=== PATIENT | male | born 1960 | race Hispanic/Latino ===

== ENCOUNTER 2019-02-20 10:47 | Observation (INO) | payer OTHER ==
[~2019-02-20] VITALS: Ht 154.9 cm; Wt 75.9 kg
[2019-02-20] MEDS ORDERED: HYDRALAZINE HCL 20 MG/ML VIAL IV STA (10:54)
[2019-02-20] MEDS ORDERED: MULTIVITAMINS- 12 INJECTION 10 ML, FOLIC ACID MDV 5 MG, THIAMINE HCL INJ 100 MG in SODI... IV ONE ×2 (11:00→13:00)
[2019-02-20] MEDS ORDERED: DIAZEPAM INJ 5 MG/ML 2 ML IV ONE (11:00)
[2019-02-20 11:24] LABS: BASOPHILS # (AUTO) 0.1 (0.0-0.1); BASOPHILS % 0.7 % (0.0-1.0); EOSINOPHILS % 0.6 % (0.0-6.0); HEMATOCRIT 48.8 % (38.2-49.6); HEMOGLOBIN 16.9 g/dL (14.0-18.0); LYMPHOCYTES # (AUTO) 1.4 (1.0-3.2); LYMPHOCYTES % 19.3 % (18.0-39.1); MEAN CORPUSCULAR HEMOGLOBIN 29.8 pg (28-32); MEAN CORPUSCULAR HGB CONC 34.6 g/dL (31-35); MEAN CORPUSCULAR VOLUME 86.1 fL (81-99); MONOCYTES # (AUTO) 0.6 (0.2-0.8); MONOCYTES % 8.7 % (4.4-11.3); NEUTROPHILS % 70.1 % (38.7-80.0); PLATELET COUNT 151 x10e3/uL (140-360); RED BLOOD COUNT 5.67 x10e6/uL (4.3-5.7); RED CELL DISTRIBUTION WIDTH 13.5 % (11.7-14.4)
[2019-02-20 11:34] LABS: INR 0.9; PROTHROMBIN TIME 12.6 seconds (11.9-14.5)
[2019-02-20 11:36] LABS: PARTIAL THROMBOPLASTIN TIME 24.7 seconds (23.8-35.5)
[2019-02-20 11:37] LABS: ALANINE AMINOTRANSFERASE 54 IU/L (0-55); ALBUMIN 4.5 g/dL (3.5-5.0); ALBUMIN/GLOBULIN RATIO 1.3 (0.8-2.0); ALKALINE PHOSPHATASE 108 IU/L (40-150); ANION GAP 20.3 mmol/L (8-16); BLOOD UREA NITROGEN 6 mg/dL (7-26); BUN/CREATININE RATIO 6 (6-25); CARBON DIOXIDE 25 mmol/L (22-29); CHLORIDE 95 mmol/L (98-107); CREATINE KINASE 1104 IU/L (30-200); CREATININE, SERUM 1.04 mg/dL (0.72-1.25); EST GLOMERULAR FILTRATION RATE > 60 ML/MIN (60-); GLUCOSE 129 mg/dL (74-118); POTASSIUM 3.3 mmol/L (3.5-5.1); SODIUM 137 mmol/L (136-145)
[2019-02-20 11:48] LABS: BILIRUBIN,URINE NEGATIVE (NEGATIVE); CLARITY,URINE CLEAR (CLEAR); COLOR,URINE YELLOW (YELLOW); LEUKOCYTE ESTERASE ,URINE NEGATIVE (NEGATIVE); NITRITE,URINE NEGATIVE (NEGATIVE); PROTEIN,URINE DIPSTICK 2+ (NEGATIVE); URINE UROBILINOGEN 1 mg/dL (0.2 - 1)
[2019-02-20 12:08] LABS: KETONES,URINE 2+ (NEGATIVE)
[2019-02-20 12:09] LABS: BACTERIA,URINE MODERATE /HPF; EPITHELIAL CELLS,URINE MODERATE /LPF
--- NOTE | 2019-02-20 13:06 | Diagnostic Imaging Report ---
EXAMINATION: CHEST SINGLE (NOT PORTABLE) INDICATION: Hypertension COMPARISON: None FINDINGS: LINES/TUBES:EKG leads overlie the chest. LUNGS:The lungs are well-inflated. No focal consolidation or pulmonary edema. PLEURA:No pleural effusion or pneumothorax. MEDIASTINUM:The cardiomediastinal silhouette appears normal in size and shape. BONES/SOFT TISSUES:No acute osseous injury. ABDOMEN:No free air under the diaphragm. IMPRESSION: No focal pneumonia or pulmonary edema. Signed by: Ady Tao MD on 02/20/2019 1:02 PM
[2019-02-20] MEDS ORDERED: SODIUM CHLORIDE 0.9% 1000ML 1,000 ML IV SCH (13:31)
--- OUTSIDE RECORDS SUMMARY | 2019-02-20 13:42 | XMS REPORT ---
[facility] [place] Address Unknown Phone Unavailable Care Team Providers Care It Compliance Manager Name Role Phone Tony GUERRA Unavailable Unavailable Problems This patient has no known problems. Allergies, Adverse Reactions, Alerts This patient has no known allergies or adverse reactions. Medications This patient has no known medications. Results Test Description Test Time Test Comments Text Results Atomic Results Result Comments CHEST SINGLE (NOT PORTABLE) 2019-02-20 13:01:00 [facility] [address] [place] [address] Patient Name: ELISHA MAR MR #: [id number] : 1960 Age/Sex: 58/M Req #: [id number] Adm Physician: Ordered by: BRIAN BETHEA NP Report #: [id number] Location: ER Room/Bed: Procedure: [id number] DX/CHEST SINGLE (NOT PORTABLE) Exam Date: 02/20/19 Exam Time: 1205 REPORT STATUS: Signed EXAMINATION: CHEST SINGLE (NOT PORTABLE) INDICATION: Hypertension COMPARISON: None FINDINGS: LINES/TUBES:EKG leads overlie the chest. LUNGS:The lungs are well-inflated. No focal consolidation or pulmonary edema. PLEURA:No pleural effusion or pneumothorax. MEDIASTINUM:The cardiomediastinal silhouette appears normal in size and shape. BONES/SOFT TISSUES:No acute osseous injury. ABDOMEN:No free air under the diaphragm. IMPRESSION: No focal pneumonia or pulmonary edema. Signed by: Vincenzo Tao MD on 02/20/2019 1:02 PM Dictated By: VINCENZO TAO MD 1302 Transcribed By: KALLI on 02/20/19 1302 COPY TO: BRIAN BETHEA NP
[2019-02-20] MEDS ORDERED: ASPIRIN 81 MG CHEW TAB PO ONE (13:45)
[2019-02-20] MEDS ORDERED: ONDANSETRON HCL INJ 2MG/ML 2ML 2 MG/ML VIAL IV PRN (13:45)
[2019-02-20 14:02] LABS: AMPHETAMINES SCREEN,URINE NEGATIVE (NEGATIVE); BENZODIAZEPINES SCREEN,URINE NEGATIVE (NEGATIVE); PHENCYCLIDINE SCREEN,URINE NEGATIVE (NEGATIVE)
--- NOTE | 2019-02-20 15:30 | NUR ---
Received patient from ER via stretcher. AAOX4 to time, person, place, situation Respirations even and unlabored. Tele #[phone] ST [id number].Oriented to room. Instructed to use call light for assistance. Voiced understanding.
[2019-02-20 16:00] VITALS: BP 173/93
[2019-02-20] MEDS ORDERED: LOSARTAN-HCTZ1 EAC2 PO (16:02)
[2019-02-20 16:14] VITALS: BP 173/93
[2019-02-20] MEDS ORDERED: LOSARTAN POTASSIUM 100 MG TAB PO ONE (16:30)
[2019-02-20] MEDS ORDERED: CLONIDINE HCL 0.1 MG TAB PO ONE (16:30)
[2019-02-20] MEDS: ACETAMINOPHEN 325 MG TAB PO PRN (16:52)
[2019-02-20] MEDS: CHLORDIAZEPOXIDE HCL 25 MG CAP PO SCH (16:52)
--- NOTE | 2019-02-20 16:53 | NUR ---
aware of BP and of chest pain. See orders
[2019-02-20 17:01] VITALS: BP 173/93
[2019-02-20] MEDS ORDERED: POTASSIUM CHLORIDE 20 MEQ TAB CR PO ONE (18:22)
[2019-02-20] MEDS ORDERED: METOPROLOL TARTRATE 25 MG TAB PO ONE (18:31)
--- NOTE | 2019-02-20 19:10 | NUR ---
Report given to oncoming nurse of patient's status. Resting in bed, side rails upx2, call light within reach. and family members at bedside. AAOX4 to time, person, place, situation. Respirations even and unlabored. Denies pain.
[2019-02-20 19:26] LABS: MAGNESIUM 2.3 MG/DL (1.3-2.1)
[2019-02-20 19:48] LABS: FREE THYROXINE INDEX 2.9764 (1.4-3.8); THYROID STIMULATING HORMONE 3.666 uIU/mL (0.350-4.940)
[2019-02-20 20:00] VITALS: BP 138/81
--- NOTE | 2019-02-20 20:00 | NUR ---
INITIAL ASSESSMENT COMPLETE, FAMILY AT BEDSIDE, VS STABLE, NO C/O PAIN, TELE ON PT, IV INFUSING, NO DISTRESS NOTED, CALL LIGHT IN REACH
[2019-02-21] VITALS: BP 135/82
[2019-02-21 04:00] VITALS: BP 152/90
[2019-02-21] MEDS: CHLORDIAZEPOXIDE HCL 25 MG CAP PO SCH ×3 (06:00→11:58)
[2019-02-21 06:18] LABS: BASOPHILS % 0.5 % (0.0-1.0); EOSINOPHILS # (AUTO) 0.1 (0.0-0.4); EOSINOPHILS % 1.8 % (0.0-6.0); HEMATOCRIT 44.7 % (38.2-49.6); LYMPHOCYTES # (AUTO) 1.2 (1.0-3.2); LYMPHOCYTES % 19.8 % (18.0-39.1); MEAN CORPUSCULAR HEMOGLOBIN 30.2 pg (28-32); MEAN CORPUSCULAR HGB CONC 33.6 g/dL (31-35); MEAN CORPUSCULAR VOLUME 90.1 fL (81-99); MONOCYTES # (AUTO) 0.5 (0.2-0.8); MONOCYTES % 7.9 % (4.4-11.3); NEUTROPHILS # (AUTO) 4.3 (2.1-6.9); NEUTROPHILS % 69.7 % (38.7-80.0); PLATELET COUNT 114 x10e3/uL (140-360); RED BLOOD COUNT 4.96 x10e6/uL (4.3-5.7); RED CELL DISTRIBUTION WIDTH 13.8 % (11.7-14.4)
[2019-02-21 06:47] LABS: CREATINE KINASE MB 2.1 ng/mL (0-5.0)
[2019-02-21 07:09] LABS: ALANINE AMINOTRANSFERASE 42 IU/L (0-55); ALBUMIN 3.4 g/dL (3.5-5.0); ALBUMIN/GLOBULIN RATIO 1.1 (0.8-2.0); ALKALINE PHOSPHATASE 82 IU/L (40-150); ANION GAP 13.5 mmol/L (8-16); BLOOD UREA NITROGEN 9 mg/dL (7-26); BUN/CREATININE RATIO 10 (6-25); CALCIUM 8.6 mg/dL (8.4-10.2); CARBON DIOXIDE 26 mmol/L (22-29); CHLORIDE 102 mmol/L (98-107); CREATININE, SERUM 0.93 mg/dL (0.72-1.25); EST GLOMERULAR FILTRATION RATE > 60 ML/MIN (60-); GLUCOSE 98 mg/dL (74-118); POTASSIUM 4.5 mmol/L (3.5-5.1); SODIUM 137 mmol/L (136-145)
[2019-02-21 07:10] VITALS: BP 156/92
[2019-02-21 07:14] LABS: PLATELET ESTIMATE SLIGHTLY DECREASED; PLATELET MORPHOLOGY COMMENT RARE EDTA CLUMPING; RBC MORPHOLOGY COMMENT NORMAL
[2019-02-21 07:26] VITALS: BP 156/92
--- NOTE | 2019-02-21 07:26 | Diagnostic Imaging Report ---
EXAMINATION: CHEST SINGLE (PORTABLE) INDICATION: ^CP ^[id number] ^[id number] COMPARISON: 02/20/2019 FINDINGS: AP view TUBES and LINES: None. LUNGS: Lungs are well inflated. There is no evidence of pneumonia or pulmonary edema. PLEURA: No pleural effusion or pneumothorax. HEART AND MEDIASTINUM: The cardiomediastinal silhouette is unremarkable. Prominent bilateral hilar regions. BONES AND SOFT TISSUES: No acute osseous lesion. Soft tissues are unremarkable. UPPER ABDOMEN: No free air under the diaphragm. IMPRESSION: Prominent bilateral hilar regions, could represent hilar adenopathy. Otherwise, unremarkable. Signed by: Dr. Deniz Frank MD on 02/21/2019 7:23 AM
[2019-02-21] MEDS: ACETAMINOPHEN 325 MG TAB PO PRN (08:16)
[2019-02-21] MEDS ORDERED: LOSARTAN POTASSIUM 100 MG TAB PO SCH ×2 (09:00→09:30)
[2019-02-21] MEDS ORDERED: LOSARTAN POTAS100 MG PO (09:30)
[2019-02-21] MEDS ORDERED: CHLORDIAZEPOXID25 MG PO (09:30)
[2019-02-21] MEDS ORDERED: LOSARTAN POTASSIUM 100 MG TAB PO ONE (10:00)
--- NOTE | 2019-02-21 10:19 | NUR ---
at bedside. Patient states "I am depressed. I had not told you, but yesterday prior to being admitted I had suicidal thoughts only. This has happened in the past. Today I am feeling more positive." Paged to notify of patient's status.
--- NOTE | 2019-02-21 11:20 | NUR ---
at bedside and aware of patient's depression. aware patient stated "I had suicidal thoughts yesterday prior to admission, but today I feel more positive."
[2019-02-21 13:07] VITALS: BP 150/81
--- NOTE | 2019-02-21 13:55 | NUR ---
Spoke with Quinn, with Dr.Qureshi Browne answering service, and scheduled appointment for 02/23/19 at 08:50. Patient and aware of appointment.
--- NOTE | 2019-02-21 14:06 | NUR ---
Right AC IV discontinued. No signs of infiltration noted. 2x2 gauze and tape place. Refused wheelchair. Accompanied by PCT and to personal car. AAOX4 to time, person, place, situation. Respirations even and unlabored. Denies pain. Discharge instructions, rx, and all personal belongings taken with patient. Reminded patient of appointment with Dr. Ronen Browne Voiced understanding.
--- NOTE | 2019-02-21 20:26 | History and Physical ---
CLINICAL HISTORY: This is a 58-year-old man admitted via the emergency room because of alcohol withdrawal and chest pain. Approximately 4 years ago, he was . Since that time, he has had no complaints. He has been sober for approximately 8 years, but his was away recently, so he decided to start drinking. He is somewhat depressed, but denies any suicidal ideation. He presented to the hospital with the above CK was elevated. CK-MB was borderline. Troponins negative. Serial enzymes showed improved myocardial infarction. EKG showed no acute changes. His pain was somewhat and it disappeared the following day. Apparently he had been smoking for 2 or 3 days prior to admission. He has history of hypertension, taking losartan 100 mg/12.5 mg hydrochlorothiazide daily, he has hypokalemia. PAST MEDICAL HISTORY: Remarkable for the above-mentioned hospitalization. Denies any other hospitalization. Denies any surgery. 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 He has not drank for 8 years. Denies . Denies drug abuse. FAMILY HISTORY: Remarkable for mother had hypertension. Sister has arthritis. REVIEW OF SYSTEMS: Noncontributory. PHYSICAL EXAMINATION: GENERAL: He is alert, coherent. VITAL SIGNS: Stable. CARDIAC: Jugular veins nondistended. S1 and S2 were regular. There are no appreciable murmurs. LUNGS: Clear. ABDOMEN: Soft. Bowel sounds are present. EXTREMITIES: Shows no cyanosis, clubbing, or edema. IMPRESSION: 1. Atypical chest pain, resolved. Pain is somewhat pleuritic, probably nonischemic in nature with no EKG changes. Cardiac enzymes show rhabdomyolysis rather than infarction. 2. Rhabdomyolysis due to alcoholism and drunken state. 3. Alcohol withdrawal. 4. Hypertension. 5. Hypokalemia. 6. Depression without suicidal ideation. RECOMMENDATION: Hydration, Librium, vitamins outpatient cardiac workup for chest pain. Thank you very much. [place] K MD MIKAL Smith/MODL /[id number]
[2019-02-22] MEDS ORDERED: LOSARTAN POTASSIUM 100 MG TAB PO SCH (09:00)
--- NOTE | 2019-02-22 11:56 | Discharge Summary ---
CLINICAL HISTORY: This is a 58-year-old man admitted via the emergency room because of alcohol withdrawal and chest pains. Please refer to my previous dictation concerning details of current illness, past medical history, personal and social history, family history, review of systems, physical examination, and initial laboratory studies. HOSPITAL COURSE: The patient's cardiac enzymes and EKG were stable. No evidence of myocardial infarction. He did have rhabdomyolysis with predominantly elevated CK, which gradually improved. Troponin was negative. Chest x-ray showed no acute findings. His potassium was 3.3 at the time of admission, was improved to 4.5. Bilirubin remained elevated at 1.6. AST was elevated at 104. CK was 1104, declining to 464. CK-MB was 5.5, declining to 2.1. Troponin x3 were negative. Albumin was 3.4. Lipase was slightly elevated at 9.4. Thyroid functions were negative. He returned back to normal, had no further chest pains. The pain has been somewhat pleuritic. He decided for discharge to have outpatient workup including echocardiogram and stress testing. in 1 week. DISCHARGE MEDICATIONS: Librium 25 mg p.o. 6 to 12 hours p.r.n., withdrawal and losartan 100 mg p.o. daily. DISCHARGE DIAGNOSES: 1. Alcohol withdrawal. 2. Rhabdomyolysis due to alcoholism. 3. Depression without suicidal ideation. 4. Chest pains outpatient echo and stress testing. 5. Borderline elevated lipase with normal amylase, lipase level 94 (normal less than 78). 6. Hyperbilirubinemia due to alcoholism, the patient instructed to avoid Tylenol. 7. Hypokalemia, corrected. MD MIKAL Gonzalez/RACHAEL /[id number]
== END 2019-02-21 14:06 | disposition home or self-care (01) ==
LOC: ER 10:47 → ERHOLD 13:31 → MED/SURG 15:27
PROVIDERS: ADMIT Internal Medicine Cardiovascular Disease; ATTEND Internal Medicine Cardiovascular Disease
DX: R07.89 Other chest pain (principal); F10.239 Alcohol dependence with withdrawal, unspecified; I10 Essential (primary) hypertension; E87.6 Hypokalemia; M62.82 Rhabdomyolysis; F32.9 Major depressive disorder, single episode, unspecified; Z88.6 Allergy status to analgesic agent
CPT/HCPCS: 36415 ×2; 71045 ×2; 80053 ×2; 80307; 80320; 81001; 82150; 82550 ×2; 82553 ×2; 83690; 83735; 83880; 84436; 84443; 84479; 84484 ×2; 85025 ×2; 85610; 85730; 93005 ×2; 99284; G0378 ×2; J0360; J3360; J3411; J7030 ×2

== ENCOUNTER 2020-05-19 16:23 | Emergency (ER) | payer OTHER ==
[~2020-05-19] VITALS: Ht 154.9 cm; Wt 75.7 kg
[~2020-05-19 16:23] MED LIST: CHLORDIAZEPOXID25 MG PO; LOSARTAN POTAS100 MG PO; LOSARTAN-HCTZ1 EAC2 PO
[2020-05-19] MEDS ORDERED: SODIUM CHLORIDE 0.9% 1000ML 1,000 ML ONE (16:44)
[2020-05-19] MEDS ORDERED: LACTATED RINGER'S 1,000 ML INJ ONE (16:45)
[2020-05-19] MEDS ORDERED: THIAMINE HCL INJ 100 MG/ML 2ML VIAL IV ONE (16:45)
[2020-05-19 16:49] LABS: BASOPHILS # (AUTO) 0.1 (0.0-0.1); BASOPHILS % 0.8 % (0.0-1.0); EOSINOPHILS # (AUTO) 0.1 (0.0-0.4); EOSINOPHILS % 0.8 % (0.0-6.0); HEMATOCRIT 48.2 % (38.2-49.6); HEMOGLOBIN 16.3 g/dL (14.0-18.0); LYMPHOCYTES # (AUTO) 3.2 (1.0-3.2); LYMPHOCYTES % 33.1 % (18.0-39.1); MEAN CORPUSCULAR HEMOGLOBIN 30.4 pg (28-32); MEAN CORPUSCULAR HGB CONC 33.8 g/dL (31-35); MEAN CORPUSCULAR VOLUME 89.8 fL (81-99); MONOCYTES # (AUTO) 0.6 (0.2-0.8); MONOCYTES % 6.1 % (4.4-11.3); NEUTROPHILS # (AUTO) 5.7 (2.1-6.9); NEUTROPHILS % 58.9 % (38.7-80.0); PLATELET COUNT 236 x10e3/uL (140-360); RED BLOOD COUNT 5.37 x10e6/uL (4.3-5.7); RED CELL DISTRIBUTION WIDTH 13.2 % (11.7-14.4)
[2020-05-19 17:04] LABS: ALANINE AMINOTRANSFERASE 24 IU/L (0-55); ALBUMIN 4.3 g/dL (3.5-5.0); ALBUMIN/GLOBULIN RATIO 1.5 (0.8-2.0); ALKALINE PHOSPHATASE 85 IU/L (40-150); ANION GAP 22.5 mmol/L (8-16); BLOOD UREA NITROGEN 10 mg/dL (7-26); BUN/CREATININE RATIO 10 (6-25); CALCIUM 8.2 mg/dL (8.4-10.2); CARBON DIOXIDE 20 mmol/L (22-29); CHLORIDE 103 mmol/L (98-107); CREATININE, SERUM 0.98 mg/dL (0.72-1.25); EST GLOMERULAR FILTRATION RATE > 60 ML/MIN (60-); GLUCOSE 90 mg/dL (74-118); POTASSIUM 3.5 mmol/L (3.5-5.1); SODIUM 142 mmol/L (136-145)
[2020-05-19 17:09] LABS: SALICYLATE < 5.0 mg/dL (0-30)
[2020-05-19 17:42] LABS: CREATINE KINASE MB 1.8 ng/mL (0-5.0)
[2020-05-19] MEDS ORDERED: SODIUM CHLORIDE 0.9% 1000ML 1,000 ML IV SCH ×3 (17:45→23:15)
[2020-05-19] MEDS ORDERED: FOLIC ACID MDV 5 MG, THIAMINE HCL INJ 100 MG in SODIUM CHLORIDE 0.9% 1000ML 1,000 ML IV ONE (18:00)
[2020-05-19 18:13] LABS: THYROID STIMULATING HORMONE 0.671 uIU/mL (0.350-4.940)
[2020-05-19 19:24] LABS: AMPHETAMINES SCREEN,URINE NEGATIVE (NEGATIVE); BENZODIAZEPINES SCREEN,URINE NEGATIVE (NEGATIVE); PHENCYCLIDINE SCREEN,URINE NEGATIVE (NEGATIVE)
[2020-05-19 19:41] LABS: CLARITY,URINE CLEAR (CLEAR); COLOR,URINE STRAW (YELLOW)
[2020-05-19 19:42] LABS: KETONES,URINE 1+ (NEGATIVE); LEUKOCYTE ESTERASE ,URINE NEGATIVE (NEGATIVE); NITRITE,URINE NEGATIVE (NEGATIVE); PROTEIN,URINE DIPSTICK NEGATIVE (NEGATIVE); URINE UROBILINOGEN 0.2 mg/dL (0.2 - 1)
[2020-05-19 19:43] LABS: RBC,URINE 0-5 /HPF (0-5); WBC,URINE (MAN) 0-5 /HPF (0-5)
[2020-05-19] MEDS ORDERED: CHLORDIAZEPOXIDE HCL 25 MG CAP PO ONE (22:45)
[2020-05-19] MEDS ORDERED: CHLORDIAZEPOXIDE HCL 25 MG CAP ONE (22:49)
[2020-05-20] MEDS ORDERED: LORAZEPAM INJ 2 MG/ML VIAL ONE (00:26)
[2020-05-20] MEDS ORDERED: LORAZEPAM INJ 2 MG/ML VIAL IV ONE (00:30)
[2020-05-20] MEDS ORDERED: CARVEDILOL12.5 MG PO (01:14)
[2020-05-20] MEDS ORDERED: TADALAFIL5 MG PO (01:14)
[2020-05-20] MEDS ORDERED: ACETAMINOPHEN 325 MG TAB PO ONE (01:15)
[2020-05-20] MEDS ORDERED: METOPROLOL TARTRATE INJ 1 MG/ML VIAL IV ONE (01:45)
[2020-05-20] MEDS ORDERED: CHLORDIAZEPOXIDE HCL 25 MG CAP PO ONE (01:45)
[2020-05-20 02:32] VITALS: BP 153/87
[2020-05-20] MEDS ORDERED: FOLIC ACID 1 MG TAB PO SCH (09:00)
== END 2020-05-20 03:04 | disposition other institution (70) ==
LOC: ER 16:25
DX: R45.851 Suicidal ideations (principal); F10.10 Alcohol abuse, uncomplicated; F32.9 Major depressive disorder, single episode, unspecified; Z20.828 Contact with and (suspected) exposure to other viral communicable diseases
CPT/HCPCS: 36415; 80053; 80307; 80320; 80329 ×2; 81001; 82550; 82553; 84443; 84484; 85025; 93005; 99284; J2060; J3411; J7030; U0002